=== PATIENT | female | born 1970 | race Caucasian/White ===

== ENCOUNTER 2018-09-20 21:55 | Inpatient (IN) | payer OTHER ==
[~2018-09-20] VITALS: Ht 154.9 cm; Wt 73.5 kg
[2018-09-20] MEDS ORDERED: SOD CHLORIDE 0.9% 1,000 ML IV STA (23:26)
[2018-09-20] MEDS ORDERED: ONDANSETRON 4 MG INJ IV STA (23:26)
[2018-09-20] MEDS ORDERED: PIPER-TAZO 3.375 GM IV (PMX) 100 ML IVPB STA (23:26)
[2018-09-20] MEDS ORDERED: morphine 4 MG/ML VIAL IV STA (23:26)
--- NOTE | 2018-09-20 23:32 | ERD ---
ER Documentation Chief Complaint Chief Complaint L upper breast abscess x 2 days HPI 48-year-old female with no reported past medical history who presents with complaint of left breast tenderness. States she feels he has an abscess there. Had worsening pain to the area just medial of areola of left breast. She denies any prior history of abscesses. Also reports of fever and at the time of evaluation febrile with tachycardia. She otherwise is without complaint denying any other concerning symptoms. ROS All systems reviewed and are negative except as per history of present illness. Allergies Allergies: Coded Allergies: No Known Allergy (Unverified , 09/20/18) PMhx/Soc Medical and Surgical Hx: pt denies Medical Hx, pt denies Surgical Hx History of Surgery: No Anesthesia Reaction: No Hx Respiratory Disorders: No Hx Cardiac Disorders: No Hx Psychiatric Problems: No Hx Miscellaneous Medical Probl: No Hx Alcohol Use: No Hx Substance Use: No Hx Tobacco Use: No Smoking Status: Never smoker FmHx Family History: No diabetes, No coronary disease, No other Physical Exam Vitals Vital Signs Date Temp Pulse Resp B/P (MAP) Pulse Ox O2 O2 Flow FiO2 Time Delivery Rate 09/20/18 101.7 102 18 118/56 96 22:10 (76) Physical Exam Const: No acute distress Head: Atraumatic Eyes: Normal Conjunctiva ENT: Normal External Ears, Nose and Mouth. Neck: Full range of motion. No meningismus. Resp: Clear to auscultation bilaterally Cardio: Regular rate and rhythm, no murmurs Abd: Soft, non tender, non distended. Normal bowel sounds Skin: Left breast area medial to the area Chary with tenderness to palpation, erythema, and duration Back: No midline or flank tenderness Ext: No cyanosis, or edema Neur: Awake and alert Psych: Normal Mood and Affect Procedures/MDM 48-year-old female presents with likely left breast abscess. Patient febrile and tachycardic at time of evaluation. Patient will be admitted for further evaluation and treatment per discussion with Dr. Loaiza ED attending. Plan: Admit to hospital for further care and work-up Departure Diagnosis: Primary Impression: Acute abscess Condition: Stable BERNARDO CAPELLAN PA-C Sep 20, 2018 23:32
[2018-09-21] MEDS ORDERED: ONDANSETRON 4 MG INJ IV PRN ×2 (01:30→02:30)
[2018-09-21] MEDS ORDERED: ACETAMINOPHEN 325 MG TAB PO PRN ×2 (01:30→02:30)
--- NOTE | 2018-09-21 02:22 | ERD ---
ER Documentation Chief Complaint Chief Complaint L upper breast abscess x 2 days HPI This very pleasant 48-year female with a left upper breast pains and swelling and induration. Denies any fevers or chills nausea or vomiting. Denies any other current complaints. Noted to have fever in triage however. ROS All systems reviewed and are negative except as per history of present illness. Allergies Allergies: Coded Allergies: No Known Allergy (Unverified , 09/20/18) PMhx/Soc Medical and Surgical Hx: pt denies Medical Hx, pt denies Surgical Hx History of Surgery: No Anesthesia Reaction: No Hx Respiratory Disorders: No Hx Cardiac Disorders: No Hx Psychiatric Problems: No Hx Miscellaneous Medical Probl: No Hx Alcohol Use: No Hx Substance Use: No Hx Tobacco Use: No Smoking Status: Never smoker Physical Exam Vitals Vital Signs Date Temp Pulse Resp B/P (MAP) Pulse Ox O2 O2 Flow FiO2 Time Delivery Rate 09/20/18 101.7 102 18 118/56 96 22:10 (76) Physical Exam Const: No acute distress Head: Atraumatic Eyes: Normal Conjunctiva ENT: Normal External Ears, Nose and Mouth. Neck: Full range of motion. No meningismus. Resp: Clear to auscultation bilaterally Cardio: Regular rate and rhythm, no murmurs Abd: Soft, non tender, non distended. Normal bowel sounds Skin: No petechiae or rashes Back: No midline or flank tenderness Ext: No cyanosis, or edema Neur: Awake and alert Psych: Normal Mood and Affect Result Diagram: 09/20/18 2336 09/20/18 2336 Results 24 hrs Laboratory Tests Test 09/20/18 23:36 09/20/18 23:37 White Blood Count 18.3 10^3/ul Red Blood Count 4.22 10^6/ul Hemoglobin 13.9 g/dl Hematocrit 40.5 % Mean Corpuscular Volume 96.0 fl Mean Corpuscular Hemoglobin 32.9 pg Mean Corpuscular Hemoglobin Concent 34.3 g/dl Red Cell Distribution Width 12.0 % Platelet Count 253 10^3/UL Mean Platelet Volume 9.5 fl Immature Granulocytes % 0.500 % Neutrophils % 77.8 % Lymphocytes % 11.0 % Monocytes % 10.1 % Eosinophils % 0.3 % Basophils % 0.3 % Nucleated Red Blood Cells % 0.0 /100WBC Immature Granulocytes # 0.090 10^3/ul Neutrophils # 14.3 10^3/ul Lymphocytes # 2.0 10^3/ul Monocytes # 1.8 10^3/ul Eosinophils # 0.1 10^3/ul Basophils # 0.1 10^3/ul Nucleated Red Blood Cells # 0.0 10^3/ul Urine Color STRAW Urine Clarity CLEAR Urine pH 6.0 Urine Specific [place] 1.008 Urine Ketones NEGATIVE mg/dL Urine Nitrite NEGATIVE mg/dL Urine Bilirubin NEGATIVE mg/dL Urine Urobilinogen NEGATIVE mg/dL Urine Leukocyte Esterase NEGATIVE Shaun/ul Urine Microscopic RBC 2 /HPF Urine Microscopic WBC 0 /HPF Urine Hemoglobin 1+ mg/dL Urine Glucose NEGATIVE mg/dL Urine Total Protein NEGATIVE mg/dl Sodium Level 141 mmol/L Potassium Level 3.8 mmol/L Chloride Level 105 mmol/L Carbon Dioxide Level 26 mmol/L Anion Gap 10 Blood Urea Nitrogen 10 mg/dl Creatinine 0.60 mg/dl Est Glomerular Filtrat Rate mL/min > 60 mL/min Glucose Level 106 mg/dl Calcium Level 9.2 mg/dl Total Bilirubin 0.7 mg/dl Direct Bilirubin 0.00 mg/dl Indirect Bilirubin 0.7 mg/dl Aspartate Amino Transf (AST/SGOT) 19 IU/L Alanine Aminotransferase (ALT/SGPT) 18 IU/L Alkaline Phosphatase 86 IU/L Total Protein 7.6 g/dl Albumin 4.2 g/dl Globulin 3.40 g/dl Albumin/Globulin Ratio 1.23 Lipase 64 U/L POC Beta HCG, Qualitative NEGATIVE Current Medications Medications Dose Sig/Ania Start Time Status Last (Trade) Ordered Route PRN Stop Time Admin Dose Reason Admin Sodium 1,000 ml @ Q1H STAT 09/20/18 DC 09/20/18 Chloride 1,000 mls/hr IV 23:26 23:44 09/21/18 00:25 Morphine 4 mg ONCE STAT 09/20/18 DC 09/20/18 Sulfate IV 23:26 23:44 (morphine) 09/20/18 23:31 Ondansetron 4 mg ONCE STAT 09/20/18 DC 09/20/18 HCl (Zofran IV 23:26 23:44 Inj) 09/20/18 23:31 Piperacillin 100 ml @ ONCE STAT 09/20/18 DC 09/21/18 Sod/ 200 mls/hr IVPB 23:26 00:09 Tazobactam 7/10/19 23:55 Sod Ondansetron 4 mg BRIDGE ORDER 09/21/18 HCl (Zofran PRN IV 01:30 Inj) NAUSEA/VOMITI 09/22/18 01:29 NG 650 mg ER BRIDGE 09/21/18 Acetaminophen PRN PO 01:30 (Tylenol .MILD PAIN 09/22/18 01:29 Tab) 1-3 OR TEMP IV Flush 3 ml PER 09/21/18 (NS 3 ml) PROTOCOL IV 02:30 Ondansetron 4 mg Q6H PRN 09/21/18 HCl (Zofran IV 02:30 Inj) NAUSEA/VOMITI NG 650 mg Q6H PRN 09/21/18 Acetaminophen PO .PAIN 1-3 02:30 (Tylenol OR TEMP Tab) 1 tab Q6H PRN 09/21/18 Acetaminophen PO .MOD PAIN 02:30 / 4-6 Hydrocodone Bitart ([place] (5/325)) Morphine 2 mg Q4H PRN 09/21/18 Sulfate IV .SEVERE 02:30 (morphine) PAIN 7-10 Docusate 100 mg Q12H PRN 09/21/18 Sodium PO 02:30 (Colace) .CONSTIPATION Bisacodyl 5 mg DAILY PRN 09/21/18 (Dulcolax) PO 02:30 .CONSTIPATION Vancomycin VANCOMYCIN PER 09/21/18 HCl (Vanco PER PHARMACY PROTOCOL XX 02:30 Iv Per Pharmacy) Piperacillin 100 ml @ Q6 IVPB 09/21/18 Sod/ 200 mls/hr 06:00 Tazobactam Sod Procedures/MDM Medical decision make: 48-year-old female comes in with cellulitis versus abscess. Ultrasound shows no abscess but early abscess cannot be completely excluded. Start antibiotics but admitted to hospitalist. Departure Diagnosis: Primary Impression: Acute abscess Condition: Stable KELL MILLER Sep 21, 2018 02:22
[2018-09-21] MEDS ORDERED: DOCUSATE SODIUM 100 MG CAP PO PRN (02:30)
[2018-09-21] MEDS ORDERED: HYDROCODONE/APAP (5/325) TAB PO PRN (02:30)
[2018-09-21] MEDS ORDERED: BISACODYL (EC) 5 MG TAB PO PRN (02:30)
[2018-09-21] MEDS ORDERED: morphine 2 MG INJ IV PRN (02:30)
[2018-09-21] MEDS ORDERED: VANCOMYCIN IV PER PHARMACY XX SCH (02:30)
[2018-09-21] MEDS ORDERED: NACL 0.9% 3 ML SYG IV SCH (02:30)
[2018-09-21 02:54] VITALS: Ht 154.9 cm; Wt 73.5 kg
[2018-09-21] MEDS ORDERED: VANCOMYCIN HCL 1.5 GM in SOD CHLORIDE 0.9% 250 ML IVPB ONE (03:30)
[2018-09-21 03:59] VITALS: BP 114/72; PULSE 89; RESP 20
--- NOTE | 2018-09-21 04:45 | HP ---
Date/Time of Note Date/Time of Note DATE: 09/21/18 TIME: 04:41 Assessment/Plan VTE Prophylaxis SCD applied (from Nsg): Yes Pharmacological prophylaxis: NA/contraindicated Pharm contraindication: low risk/ambulating Lines/Catheters IV Catheter Type (from Nrsg): Peripheral IV Assessment/Plan Hospital Course This is a 48-year-old female being admitted to the [facility] floor for: #1 sepsis: Secondary to left breast cellulitis. Broad-spectrum antibiotics of vancomycin and Zosyn. Will check her lactic acid level. Cultures pending #2 left breast cellulitis: Ultrasound of the breast does not show any signs of abscess. She does have area of induration as mentioned in the physical exam. At the current time we will treat with broad-spectrum antibiotics of vancomycin and Zosyn. Pain management. Patient does report that she had a benign mammogram 3 months ago. #3 obesity: We will check hemoglobin A 1C, lipid panel, TSH #4 DVT GI prophylaxis: SCDs, no GI prophylaxis indicated Further treatment strategy will be implemented as per the clinical course. Result Diagram: 09/20/18 2336 09/20/18 2336 Results 24hrs Laboratory Tests Test 09/20/18 23:36 09/20/18 23:37 White Blood Count 18.3 H Red Blood Count 4.22 Hemoglobin 13.9 Hematocrit 40.5 Mean Corpuscular Volume 96.0 Mean Corpuscular Hemoglobin 32.9 Mean Corpuscular Hemoglobin Concent 34.3 Red Cell Distribution Width 12.0 Platelet Count 253 Mean Platelet Volume 9.5 Immature Granulocytes % 0.500 H Neutrophils % 77.8 H Lymphocytes % 11.0 L Monocytes % 10.1 Eosinophils % 0.3 Basophils % 0.3 Nucleated Red Blood Cells % 0.0 Immature Granulocytes # 0.090 H Neutrophils # 14.3 H Lymphocytes # 2.0 Monocytes # 1.8 H Eosinophils # 0.1 Basophils # 0.1 Nucleated Red Blood Cells # 0.0 Urine Color STRAW Urine Clarity CLEAR Urine pH 6.0 Urine Specific [place] 1.008 Urine Ketones NEGATIVE Urine Nitrite NEGATIVE Urine Bilirubin NEGATIVE Urine Urobilinogen NEGATIVE Urine Leukocyte Esterase NEGATIVE Urine Microscopic RBC 2 Urine Microscopic WBC 0 Urine Hemoglobin 1+ H Urine Glucose NEGATIVE Urine Total Protein NEGATIVE Sodium Level 141 Potassium Level 3.8 Chloride Level 105 Carbon Dioxide Level 26 Anion Gap 10 Blood Urea Nitrogen 10 Creatinine 0.60 Est Glomerular Filtrat Rate mL/min > 60 Glucose Level 106 Calcium Level 9.2 Total Bilirubin 0.7 Direct Bilirubin 0.00 Indirect Bilirubin 0.7 Aspartate Amino Transf (AST/SGOT) 19 Alanine Aminotransferase (ALT/SGPT) 18 Alkaline Phosphatase 86 Total Protein 7.6 Albumin 4.2 Globulin 3.40 H Albumin/Globulin Ratio 1.23 Lipase 64 POC Beta HCG, Qualitative NEGATIVE HPI/ROS Admit Date/Time Admit Date/Time Sep 21, 2018 at 01:13 Hx of Present Illness Chief complaint: Left breast pain, swelling This is a 48-year-old male with no significant past medical history who presents to the emergency department with complaints of left breast swelling x2 days. Patient reports that on Tuesday she started experiencing left breast swelling. She also noticed the area that was hard. She states that it got worse and came into the emergency department. She also reports that she has had fevers and chills and body aches. She denies any nausea vomiting or diarrhea. Denies any history of trauma to the breast. Denies any discharge. She does report that she had a mammogram approximately 3 months ago which was benign. currently not breast-feeding. Allergies: NKDA Medications: None ROS Const: As per HPI Eyes : No pain discharge or redness or change in visual acuity ENT: No pain, sore throat, congestion, congestion, dysphagia or discharge Respiratory: No shortness of breath, cough, sputum, wheezing, or pleuritic pain Cardiovascular: No chest pain, palpitation, PND, or edema GI : no change in appetite, abdominal pain, nausea, vomiting, diarrhea, constipation, or change in the color his stool Genitourinary: No dysuria, hematuria, flank pain , discharge or CVA tenderness Musculoskeletal: No joint pain, back pain, neck pain, restricted range of motion in neck or joints Skin: As per HPI Neuro: No headache, dizziness, syncope, seizure, focal weakness Endocrine: No polyuria, polydipsia, temperature intolerance Psych: No hallucination, depression, anxiety or suicidal ideation PMH/Family/Social Past Medical History Medical History: no pertinent history Medications Current Medications Ondansetron HCl (Zofran Inj) 4 mg BRIDGE ORDER PRN IV NAUSEA/VOMITING; Start 09/21/18 at 01:30; Stop 09/22/18 at 01:29 Acetaminophen (Tylenol Tab) 650 mg ER BRIDGE PRN PO .MILD PAIN 1-3 OR TEMP; Start 09/21/18 at 01:30; Stop 09/22/18 at 01:29 IV Flush (NS 3 ml) 3 ml PER PROTOCOL IV ; Start 09/21/18 at 02:30 Ondansetron HCl (Zofran Inj) 4 mg Q6H PRN IV NAUSEA/VOMITING; Start 09/21/18 at 02:30 Acetaminophen (Tylenol Tab) 650 mg Q6H PRN PO .PAIN 1-3 OR TEMP Last administered on 09/21/18at 03:53; Admin Dose 650 MG; Start 09/21/18 at 02:30 Acetaminophen/ Hydrocodone Bitart ([place] (5/325)) 1 tab Q6H PRN PO .MOD PAIN 4- 6; Start 09/21/18 at 02:30 Morphine Sulfate (morphine) 2 mg Q4H PRN IV .SEVERE PAIN 7-10; Start 09/21/18 at 02:30 Docusate Sodium (Colace) 100 mg Q12H PRN PO .CONSTIPATION; Start 09/21/18 at 02:30 Bisacodyl (Dulcolax) 5 mg DAILY PRN PO .CONSTIPATION; Start 09/21/18 at 02:30 Vancomycin HCl (Vanco Iv Per Pharmacy) VANCOMYCIN PER PHARMACY PER PROTOCOL XX ; Start 09/21/18 at 02:30 Piperacillin Sod/ Tazobactam Sod 100 ml @ 200 mls/hr Q6 IVPB ; Start 09/21/18 at 06:00 Vancomycin HCl 1.5 gm/Sodium Chloride 250 ml @ 83.333 mls/ hr ONCE ONCE IVPB Last administered on 09/21/18at 02:34; Admin Dose 83.333 MLS/HR; Start 09/21/18 at 03:30; Stop 09/21/18 at 06:29 Vancomycin HCl 250 ml @ 125 mls/hr Q12H IVPB ; Start 09/21/18 at 15:30 Miscellaneous Information (*Rx Drug Level Order Reminder*) VANCOMYCIN TROUGH LEVEL 1430 ONCE XX ; Start 09/22/18 at 14:30; Stop 09/22/18 at 14:31 Coded Allergies: No Known Allergy (Unverified , 09/20/18) Past Surgical History Past Surgical Hx: no surgical history Family History Significant Family History: no pertinent family hx Social History Smoking Status: Never smoker Drug Use: none Exam/Review of Systems Vital Signs Vitals Vital Signs Date Temp Pulse Resp B/P (MAP) Pulse Ox O2 O2 Flow FiO2 Time Delivery Rate 09/21/18 100.0 89 20 114/72 98 Room Air 03:59 (86) Exam Exam Nessa the patient's RN was present during the physical exam as a x ray consultant. General: She currently lying in bed in no acute distress HEENT: Atraumatic, normocephalic. The pupils are equal, round and reactive. Extraocular motor are intact Neck: Supple with full range of motion. No rigidity or meningismus Chest: Nontender Lungs: Clear to auscultation bilaterally no crackles rales or wheezing Heart: Normal S1-S2, Regular rhythm and rate. No murmur, S3, or S4 Abdomen: Soft , nontender, nondistended , bowel sounds are present. No guarding no rebound tenderness , No masses or organomegaly. No costovertebral temporal angle mass Extremities: Normal to inspection, no edema no cyanosis Breast: Left breast warmth noted, no erythema, tenderness to palpation at the medial aspect of the breast from 5 o clock to 11 oclock.. Right breast nontender to palpation, no erythema or redness noted Lymph nodes: I do not appreciate any left axillary lymphadenopathy on my examination. Neurologic: Normal mental status, speech normal, cranial nerves II through XII are intact, motor and sensory are intact, no focal weakness Additional Comments PROCEDURE: US left Breast. CLINICAL INDICATION: Left breast pain and swelling TECHNIQUE: Multiple sonographic images of the region of concern in the left breast were obtained utilizing a high-resolution linear array transducer with grayscale and color-flow and Doppler imaging 1 appropriate. The images were reviewed on a high-resolution PACS workstation. COMPARISON: No prior studies are available for comparison. FINDINGS: Four-quadrant imaging reveals bland breast parenchyma with no visible mass or abnormal fluid collection. There is no unusual posterior acoustic shadowing. No abnormal blood flow is demonstrated. IMPRESSION: 1. No sonographic evidence of abscess in the left breast at this time. RPTAT:AAJJ Tavon Gutierrez, Physician Date Time Electronically viewed and signed by Tavon Gutierrez Physician on 09/21/2018 01:14 GW/ CC: KELL MILLER [id number] MACRINA GASPAR Sep 21, 2018 04:45
[2018-09-21] MEDS: KETOROLAC 15 MG INJ IV SCH ×3 (05:28→16:57)
[2018-09-21] MEDS: PIPER-TAZO 3.375 GM IV (PMX) 100 ML IVPB SCH ×2 (05:28→12:20)
[2018-09-21 07:51] VITALS: BP 93/56; PULSE 78; RESP 17
[2018-09-21 14:00] VITALS: BP 84/52; PULSE 70; RESP 16
--- NOTE | 2018-09-21 14:03 | PN ---
Date/Time of Note Date/Time of Note DATE: 09/21/18 TIME: 14:02 Assessment/Plan VTE Prophylaxis Risk score (from Ns)>0 risk: 2 SCD applied (from Ns): Yes Pharmacological prophylaxis: NA/contraindicated Pharm contraindication: low risk/ambulating Lines/C[facility]ters [facility] Urinary Cath still in place: No Assessment/Plan Hospital Course SUBJECTIVE: Continues to have low grade fevers. Continues to have pain in the left breast. OBJECTIVE: Physical Exam General: Adequately build 48 year-old female lying in bed in no apparent distress. HEENT: Normocephalic, atraumatic. Eyes: Anicteric sclerae, conjunctivae clear. ENT: Nasal septum midline, oral mucosa moist. Neck supple, no JVD noticed. Respiratory: Bilaterally clear breath sounds. No use of accessory muscles of respiration. No adventitious breath sounds. Cardiovascular: S1, S2 heard. No murmurs or gallops. Abdomen: Soft, nontender, and nondistended. Bowel sounds positive in all 4 quadrants. Genitourinary: Deferred. Extremities: No cyanosis, no clubbing, no edema. Peripheral pulses palpable. Neurologic: Cranial nerves II through XII grossly intact. The patient is awake, alert, and oriented. Breast: Left breast inverted nipple. Tenderness in the nipple and periareolar area. No erythema. Labs & Vitals per chart ASSESSMENT & PLAN 48-year-old female with no significant past medical history who came to the emergency department because of swelling in the left breast and pain with underlying leukocytosis, febrile illness, and tachycardia, who was admitted to inpatient setting for further treatment and evaluation. 1. Sepsis with leukocytosis, febrile illness, and tachycardia, present on admission. Pending collazo cultures. Continue empiric antimicrobials. Monitor for any septic shock. 2. Left sided mastitis. Etiology unclear. Ultrasound negative for any abscess. 3. Obesity. BMI 30 kg/m. Advised lifestyle changes. 4. Fluids, electrolytes, and nutrition. Regular diet. 5. DVT prophylaxis. Bilateral SCDs. Ambulation. 6. Plan. Continue empiric antimicrobials. Await final cultures. Await clinical improvement before discharge the patient home. The patient was in collaboration with Dr. Espinoza. Result Diagram: 09/21/18 0556 09/21/18 0556 Results 24hrs Laboratory Tests Test 09/20/18 23:36 09/20/18 23:37 09/21/18 05:56 White Blood Count 18.3 H 17.7 H Red Blood Count 4.22 3.73 L Hemoglobin 13.9 12.6 Hematocrit 40.5 35.9 L Mean Corpuscular Volume 96.0 96.2 Mean Corpuscular Hemoglobin 32.9 33.8 H Mean Corpuscular Hemoglobin Concent 34.3 35.1 Red Cell Distribution Width 12.0 12.0 Platelet Count 253 222 Mean Platelet Volume 9.5 9.7 Immature Granulocytes % 0.500 H 0.500 H Neutrophils % 77.8 H 76.7 Lymphocytes % 11.0 L 10.5 L Monocytes % 10.1 11.6 H Eosinophils % 0.3 0.4 Basophils % 0.3 0.3 Nucleated Red Blood Cells % 0.0 0.0 Immature Granulocytes # 0.090 H 0.080 H Neutrophils # 14.3 H 13.6 H Lymphocytes # 2.0 1.9 Monocytes # 1.8 H 2.1 H Eosinophils # 0.1 0.1 Basophils # 0.1 0.1 Nucleated Red Blood Cells # 0.0 0.0 Urine Color STRAW Urine Clarity CLEAR Urine pH 6.0 Urine Specific [place] 1.008 Urine Ketones NEGATIVE Urine Nitrite NEGATIVE Urine Bilirubin NEGATIVE Urine Urobilinogen NEGATIVE Urine Leukocyte Esterase NEGATIVE Urine Microscopic RBC 2 Urine Microscopic WBC 0 Urine Hemoglobin 1+ H Urine Glucose NEGATIVE Urine Total Protein NEGATIVE Sodium Level 141 142 Potassium Level 3.8 3.6 Chloride Level 105 109 Carbon Dioxide Level 26 25 Anion Gap 10 8 Blood Urea Nitrogen 10 10 Creatinine 0.60 0.58 Est Glomerular Filtrat Rate mL/min > 60 > 60 Glucose Level 106 102 Calcium Level 9.2 8.3 L Total Bilirubin 0.7 0.8 Direct Bilirubin 0.00 0.00 Indirect Bilirubin 0.7 0.8 Aspartate Amino Transf (AST/SGOT) 19 16 Alanine Aminotransferase (ALT/SGPT) 18 19 Alkaline Phosphatase 86 60 Total Protein 7.6 6.1 # Albumin 4.2 3.1 #L Globulin 3.40 H 3.00 Albumin/Globulin Ratio 1.23 1.03 Lipase 64 POC Beta HCG, Qualitative NEGATIVE Erythrocyte Sedimentation Rate 17.0 Hemoglobin A1c 4.8 Lactic Acid Level 0.9 Magnesium Level 1.8 C-Reactive Protein 6.6 H Triglycerides Level 55 Cholesterol Level 142 LDL Cholesterol, Calculated 95 HDL Cholesterol 36 Cholesterol/HDL Ratio 3.9 Thyroid Stimulating Hormone (TSH) 2.120 Exam/Review of Systems Exam Vitals Vital Signs Date Temp Pulse Resp B/P (MAP) Pulse Ox O2 O2 Flow FiO2 Time Delivery Rate 09/21/18 98.4 78 17 93/56 (68) 98 07:51 09/21/18 Room Air 03:59 Intake and Output 09/20/18 09/20/18 09/21/18 1515:00 23:00 07:00 IntakeIntake Total 350 ml BalanceBalance 350 ml Results Results 24hrs Laboratory Tests Test 09/20/18 23:36 09/20/18 23:37 09/21/18 05:56 White Blood Count 18.3 H 17.7 H Red Blood Count 4.22 3.73 L Hemoglobin 13.9 12.6 Hematocrit 40.5 35.9 L Mean Corpuscular Volume 96.0 96.2 Mean Corpuscular Hemoglobin 32.9 33.8 H Mean Corpuscular Hemoglobin Concent 34.3 35.1 Red Cell Distribution Width 12.0 12.0 Platelet Count 253 222 Mean Platelet Volume 9.5 9.7 Immature Granulocytes % 0.500 H 0.500 H Neutrophils % 77.8 H 76.7 Lymphocytes % 11.0 L 10.5 L Monocytes % 10.1 11.6 H Eosinophils % 0.3 0.4 Basophils % 0.3 0.3 Nucleated Red Blood Cells % 0.0 0.0 Immature Granulocytes # 0.090 H 0.080 H Neutrophils # 14.3 H 13.6 H Lymphocytes # 2.0 1.9 Monocytes # 1.8 H 2.1 H Eosinophils # 0.1 0.1 Basophils # 0.1 0.1 Nucleated Red Blood Cells # 0.0 0.0 Urine Color STRAW Urine Clarity CLEAR Urine pH 6.0 Urine Specific [place] 1.008 Urine Ketones NEGATIVE Urine Nitrite NEGATIVE Urine Bilirubin NEGATIVE Urine Urobilinogen NEGATIVE Urine Leukocyte Esterase NEGATIVE Urine Microscopic RBC 2 Urine Microscopic WBC 0 Urine Hemoglobin 1+ H Urine Glucose NEGATIVE Urine Total Protein NEGATIVE Sodium Level 141 142 Potassium Level 3.8 3.6 Chloride Level 105 109 Carbon Dioxide Level 26 25 Anion Gap 10 8 Blood Urea Nitrogen 10 10 Creatinine 0.60 0.58 Est Glomerular Filtrat Rate mL/min > 60 > 60 Glucose Level 106 102 Calcium Level 9.2 8.3 L Total Bilirubin 0.7 0.8 Direct Bilirubin 0.00 0.00 Indirect Bilirubin 0.7 0.8 Aspartate Amino Transf (AST/SGOT) 19 16 Alanine Aminotransferase (ALT/SGPT) 18 19 Alkaline Phosphatase 86 60 Total Protein 7.6 6.1 # Albumin 4.2 3.1 #L Globulin 3.40 H 3.00 Albumin/Globulin Ratio 1.23 1.03 Lipase 64 POC Beta HCG, Qualitative NEGATIVE Erythrocyte Sedimentation Rate 17.0 Hemoglobin A1c 4.8 Lactic Acid Level 0.9 Magnesium Level 1.8 C-Reactive Protein 6.6 H Triglycerides Level 55 Cholesterol Level 142 LDL Cholesterol, Calculated 95 HDL Cholesterol 36 Cholesterol/HDL Ratio 3.9 Thyroid Stimulating Hormone (TSH) 2.120 Medications Medication Current Medications IV Flush (NS 3 ml) 3 ml PER PROTOCOL IV ; Start 09/21/18 at 02:30 Ondansetron HCl (Zofran Inj) 4 mg Q6H PRN IV NAUSEA/VOMITING; Start 09/21/18 at 02:30 Acetaminophen (Tylenol Tab) 650 mg Q6H PRN PO .PAIN 1-3 OR TEMP Last administered on 09/21/18at 03:53; Admin Dose 650 MG; Start 09/21/18 at 02:30 Acetaminophen/ Hydrocodone Bitart ([place] (5/325)) 1 tab Q6H PRN PO .MOD PAIN 4- 6; Start 09/21/18 at 02:30 Morphine Sulfate (morphine) 2 mg Q4H PRN IV .SEVERE PAIN 7-10; Start 09/21/18 at 02:30 Docusate Sodium (Colace) 100 mg Q12H PRN PO .CONSTIPATION; Start 09/21/18 at 02:30 Bisacodyl (Dulcolax) 5 mg DAILY PRN PO .CONSTIPATION; Start 09/21/18 at 02:30 Vancomycin HCl (Vanco Iv Per Pharmacy) VANCOMYCIN PER PHARMACY PER PROTOCOL XX ; Start 09/21/18 at 02:30 Piperacillin Sod/ Tazobactam Sod 100 ml @ 200 mls/hr Q6 IVPB Last administered on 09/21/18at 12:20; Admin Dose 200 MLS/HR; Start 09/21/18 at 06:00 Vancomycin HCl 250 ml @ 125 mls/hr Q12H IVPB ; Start 09/21/18 at 15:30 Miscellaneous Information (*Rx Drug Level Order Reminder*) VANCOMYCIN TROUGH LEVEL 1430 ONCE XX ; Start 09/22/18 at 14:30; Stop 09/22/18 at 14:31 Ketorolac Tromethamine (Toradol) 15 mg Q6H IV Last administered on 09/21/18at 12:20; Admin Dose 15 MG; Start 09/21/18 at 05:00; Stop 09/22/18 at 04:59 MÓNICA BROOKE NP Sep 21, 2018 14:03
[2018-09-21 15:26] VITALS: BP 97/56; PULSE 71; RESP 16
[2018-09-21] MEDS: VANCOMYCIN 1 GM 250 ML IVPB SCH (16:57)
[2018-09-21 20:00] VITALS: BP 95/53; PULSE 77; RESP 17
[2018-09-21] MEDS: AMPICILLIN/SULB 3 GM/NS (PMX) 100 ML IVPB SCH (20:00)
[2018-09-22] MEDS: AMPICILLIN/SULB 3 GM/NS (PMX) 100 ML IVPB SCH ×2 (00:21→06:37)
[2018-09-22] MEDS: KETOROLAC 15 MG INJ IV SCH (00:22)
[2018-09-22 02:00] VITALS: BP 98/56; PULSE 74; RESP 17
[2018-09-22] MEDS: VANCOMYCIN 1 GM 250 ML IVPB SCH (04:15)
--- NOTE | 2018-09-22 07:49 | CONS ---
Assessment/Plan Assessment/Plan Hospital Course (Demo Recall) 1) L breast mastitis/cellulitis pt has quickly responded to antibiotics and feels fine less pain to L breast her fever and WBC have also improved no fluid collection appreciated on breast u/s d/c vanco/unasyn and start augmentin/doxy if pt tolerates these then she is ok for d/c from ID perspective no obvious cause for this elicited in her history Consultation Date/Type/Reason Admit Date/Time Sep 21, 2018 at 01:13 Date of Consultation: Sep 22, 2018 Type of Consult ID Date/Time of Note DATE: 09/22/18 TIME: 07:43 Hx of Present Illness healthy 48yo HF admitted with 6 days of L breast swelling and one day of F, C and pain to L breast she appreciated some mild redness to the breast upon admission no N, V, D no cough, sore throat, SOB no dysuria, rashes, joint pains she is not sexually active and does not breast feed currently she does not recall any injury to her breast and does not recall any chafing to breast from her clothes Past Medical History Medical History: no pertinent history Medications Current Medications IV Flush (NS 3 ml) 3 ml PER PROTOCOL IV ; Start 09/21/18 at 02:30 Ondansetron HCl (Zofran Inj) 4 mg Q6H PRN IV NAUSEA/VOMITING; Start 09/21/18 at 02:30 Acetaminophen (Tylenol Tab) 650 mg Q6H PRN PO .PAIN 1-3 OR TEMP Last administered on 09/21/18at 03:53; Admin Dose 650 MG; Start 09/21/18 at 02:30 Acetaminophen/ Hydrocodone Bitart ([place] (5/325)) 1 tab Q6H PRN PO .MOD PAIN 4- 6; Start 09/21/18 at 02:30 Morphine Sulfate (morphine) 2 mg Q4H PRN IV .SEVERE PAIN 7-10; Start 09/21/18 at 02:30 Docusate Sodium (Colace) 100 mg Q12H PRN PO .CONSTIPATION; Start 09/21/18 at 02:30 Bisacodyl (Dulcolax) 5 mg DAILY PRN PO .CONSTIPATION; Start 09/21/18 at 02:30 Vancomycin HCl (Vanco Iv Per Pharmacy) VANCOMYCIN PER PHARMACY PER PROTOCOL XX ; Start 09/21/18 at 02:30 Vancomycin HCl 250 ml @ 125 mls/hr Q12H IVPB Last administered on 09/22/18at 04:15; Admin Dose 125 MLS/HR; Start 09/21/18 at 15:30 Miscellaneous Information (*Rx Drug Level Order Reminder*) VANCOMYCIN TROUGH LEVEL 1430 ONCE XX ; Start 09/22/18 at 14:30; Stop 09/22/18 at 14:31 Ampicillin Sodium/ Sulbactam Sodium 100 ml @ 100 mls/hr Q6 IVPB Last administered on 09/22/18at 06:37; Admin Dose 100 MLS/HR; Start 09/21/18 at 18:00 Allergies: Coded Allergies: No Known Allergy (Unverified , 09/20/18) Past Surgical History Past Surgical Hx: no surgical history Social History Smoking Status: Never smoker Drug Use: none Exam/Review of Systems Exam Vitals Vital Signs Date Temp Pulse Resp B/P (MAP) Pulse Ox O2 O2 Flow FiO2 Time Delivery Rate 09/22/18 98.2 74 17 98/56 (70) 98 Room Air 02:00 Intake and Output 09/21/18 09/21/18 09/22/18 1515:00 23:00 07:00 IntakeIntake Total 100 ml 1050 ml BalanceBalance 100 ml 1050 ml Constitutional: alert, oriented Eyes: nl sclera Respiratory: clear to auscultation Cardiovascular: regular rate and rhythm Gastrointestinal: soft, non-tender Extremities: other (no edema or swelling to calves) Skin: other (L breast is slightly larger than R breast, no redness but there is some increase in heat to L breast) Results Result Diagram: 09/22/18 0608 09/22/18 0608 Results 24hrs Laboratory Tests Test 09/22/18 06:04 09/22/18 06:08 Phosphorus Level 3.6 Magnesium Level 2.0 White Blood Count 13.5 #H Red Blood Count 3.90 L Hemoglobin 12.8 Hematocrit 38.0 Mean Corpuscular Volume 97.4 Mean Corpuscular Hemoglobin 32.8 Mean Corpuscular Hemoglobin Concent 33.7 Red Cell Distribution Width 12.2 Platelet Count 232 Mean Platelet Volume 9.5 Immature Granulocytes % 0.500 H Neutrophils % 68.5 Lymphocytes % 16.8 Monocytes % 12.3 H Eosinophils % 1.6 Basophils % 0.3 Nucleated Red Blood Cells % 0.0 Immature Granulocytes # 0.070 H Neutrophils # 9.2 H Lymphocytes # 2.3 Monocytes # 1.7 H Eosinophils # 0.2 Basophils # 0.0 Nucleated Red Blood Cells # 0.0 Erythrocyte Sedimentation Rate 30.0 H Sodium Level 142 Potassium Level 4.3 Chloride Level 110 Carbon Dioxide Level 27 Anion Gap 5 Blood Urea Nitrogen 12 Creatinine 0.56 Est Glomerular Filtrat Rate mL/min > 60 Glucose Level 98 Calcium Level 8.8 Total Bilirubin 0.5 Direct Bilirubin 0.00 Indirect Bilirubin 0.5 Aspartate Amino Transf (AST/SGOT) 22 Alanine Aminotransferase (ALT/SGPT) 20 Alkaline Phosphatase 63 Total Protein 6.3 Albumin 3.1 L Globulin 3.20 Albumin/Globulin Ratio 0.96 Medications Medication Current Medications IV Flush (NS 3 ml) 3 ml PER PROTOCOL IV ; Start 09/21/18 at 02:30 Ondansetron HCl (Zofran Inj) 4 mg Q6H PRN IV NAUSEA/VOMITING; Start 09/21/18 at 02:30 Acetaminophen (Tylenol Tab) 650 mg Q6H PRN PO .PAIN 1-3 OR TEMP Last administered on 09/21/18at 03:53; Admin Dose 650 MG; Start 09/21/18 at 02:30 Acetaminophen/ Hydrocodone Bitart ([place] (5/325)) 1 tab Q6H PRN PO .MOD PAIN 4-6; Start 09/21/18 at 02:30 Morphine Sulfate (morphine) 2 mg Q4H PRN IV .SEVERE PAIN 7-10; Start 09/21/18 at 02:30 Docusate Sodium (Colace) 100 mg Q12H PRN PO .CONSTIPATION; Start 09/21/18 at 02:30 Bisacodyl (Dulcolax) 5 mg DAILY PRN PO .CONSTIPATION; Start 09/21/18 at 02:30 Vancomycin HCl (Vanco Iv Per Pharmacy) VANCOMYCIN PER PHARMACY PER PROTOCOL XX ; Start 09/21/18 at 02:30 Vancomycin HCl 250 ml @ 125 mls/hr Q12H IVPB Last administered on 09/22/18at 04:15; Admin Dose 125 MLS/HR; Start 09/21/18 at 15:30 Miscellaneous Information (*Rx Drug Level Order Reminder*) VANCOMYCIN TROUGH LEVEL 1430 ONCE XX ; Start 09/22/18 at 14:30; Stop 09/22/18 at 14:31 Ampicillin Sodium/ Sulbactam Sodium 100 ml @ 100 mls/hr Q6 IVPB Last administered on 09/22/18at 06:37; Admin Dose 100 MLS/HR; Start 09/21/18 at 18:00 SHRUTHI CARO MD Sep 22, 2018 07:49
[2018-09-22 07:53] VITALS: BP 103/69; PULSE 65; RESP 18
[2018-09-22] MEDS ORDERED: DOXYCYCLINE 100 MG TAB PO SCH (09:00)
[2018-09-22] MEDS ORDERED: AMOXICILLIN/CLAV 875 MG TAB PO SCH (09:00)
[2018-09-22] MEDS ORDERED: AMOX1TAB10 PO (12:50)
[2018-09-22] MEDS ORDERED: DOXY100T2 PO (12:50)
[2018-09-22] MEDS ORDERED: Work Note (12:52)
--- NOTE | 2018-09-22 12:54 | PDOCDIS ---
Discharge Instructions CONDITION [id number] Patient Condition: [id number] Stable HOME CARE INSTRUCTIONS: [id number] Diet Instructions: [id number] Regular FOLLOW UP/APPOINTMENTS Follow-up Plan Follow-up with your primary care physician 1 week. OTHER ORDERS: Other Orders: 1. Complete the course of antibiotics. 2. Take vgej-hom-decqbdn pain medications as needed. 3. Follow-up with your primary care physician in 1 week. 4. Resume activities as tolerated. 5. Please go to the nearest emergency room if you have significant pain in the left breast, persistent fevers, or any other unusual signs/symptoms. MÓNICA BROOKE NP Sep 22, 2018 12:54
[2018-09-22 14:00] VITALS: BP 132/83; PULSE 82; RESP 18
--- NOTE | 2018-09-22 14:22 | DS ---
Date/Time of Note Date/Time of Note DATE: 09/22/18 TIME: 14:21 Discharge Summary Admission/Discharge Info Admit Date/Time Sep 21, 2018 at 01:13 Discharge Date/Time Discharge Diagnosis 1. S/P sepsis with leukocytosis, febrile illness, and tachycardia, present on admission. 2. Left mastitis. 3. Obesity. BMI 30 kg/m. Patient Condition: Stable Consults Saúl Butt MD, Infectious Diseases. Procedures US Left Breast IMPRESSION: 1. No sonographic evidence of abscess in the left breast at this time. Hx of Present Illness This is a 48-year-old female with no significant past medical history came to the emergency department because of swelling in the left breast and pain with underlying leukocytosis, febrile illness, and tachycardia, was admitted to inpatient setting for further treatment and evaluation. Hospital Course Patient had evidence of sepsis with leukocytosis, febrile illness, and tachycardia secondary to underlying left-sided mastitis. Pancultures were sent on this patient which are negative to date. The patient underwent a left breast ultrasound that was negative for any abscess. Initially, the patient was maintained on IV vancomycin and Unasyn. This was switched to oral Augmentin and doxycycline after evaluation by infectious diseases. The patient responded well to the antimicrobial therapy. Therefore, the patient will be discharged home on oral amoxicillin plus doxycycline to complete a course of 10 days. The patient is a healthy female with no significant other comorbidities. The patient was noted to have a BMI of 30 kg/m indicating obesity. The patient's hemoglobin A1c was within normal limits. The patient's fasting lipid panel was satisfacto ry. The patient had a stable hospital course. That the patient was cleared by consultants to be discharged home. Discharge Instructions 1. Complete the course of antibiotics. 2. Take qbwd-wlu-rtnoycy pain medications as needed. 3. Follow-up with your primary care physician in 1 week. 4. Resume activities as tolerated. 5. Please go to the nearest emergency room if you have significant pain in the left breast, persistent fevers, or any other unusual signs/symptoms. The patient verbalized understanding of her discharge instructions. At this time I would like to thank for seeing the patient and providing clinical recommendations. The patient was in collaboration with Dr. Espinoza. [employer] [Work Note] No Conflict Check This is to certify that this patient was admitted to [facility] from 09/20/2018 to 09/22/2018. She may return back to work on 09/25/2018 with no restrictions. Prov:MÓNICA BROOKE MGMT ANALYST 09/22/18 Doxycycline* (Vibramycin*) 100 Mg Tab, 100 MG PO BID, #20 TAB Prov:MÓNICA BROOKE MGMT ANALYST 09/22/18 Amoxicillin/Potassium Clav (Amox-Clav 875-125 mg Tablet) 875-125 mg Tab, 875 MG PO BID, #20 TAB Prov:MÓNICA BROOKE MGMT ANALYST 09/22/18 Follow-up Plan Follow-up with your primary care physician 1 week. Primary Care Provider [facility] Time spent on discharge: > 30 minutes Pending Labs Laboratory Tests Test 09/22/18 06:04 09/22/18 06:08 Phosphorus Level 3.6 mg/dl (2.5-4.9) Magnesium Level 2.0 mg/dl (1.7-2.5) White Blood Count 13.5 10^3/ul (4.8-10.8) Red Blood Count 3.90 10^6/ul (4.20-5.40) Hemoglobin 12.8 g/dl (12.0-16.0) Hematocrit 38.0 % (37.0-47.0) Mean Corpuscular Volume 97.4 fl (82.0-101.0) Mean Corpuscular Hemoglobin 32.8 pg (29.0-33.0) Mean Corpuscular 33.7 g/dl (32.0-37.0) Hemoglobin Concent Red Cell Distribution Width 12.2 % (11.5-14.5) Platelet Count 232 10^3/UL (140-415) Mean Platelet Volume 9.5 fl (7.4-10.4) Immature Granulocytes % 0.500 % (0.001-0.429) Neutrophils % 68.5 % (39.0-77.0) Lymphocytes % 16.8 % (15.0-51.0) Monocytes % 12.3 % (0.0-11.0) Eosinophils % 1.6 % (0.0-7.0) Basophils % 0.3 % (0.0-2.0) Nucleated Red Blood Cells % 0.0 /100WBC (0.0-0.0) Immature Granulocytes # 0.070 10^3/ul (0.0-0.031) Neutrophils # 9.2 10^3/ul (1.6-7.5) Lymphocytes # 2.3 10^3/ul (0.8-2.9) Monocytes # 1.7 10^3/ul (0.3-0.9) Eosinophils # 0.2 10^3/ul (0.0-0.5) Basophils # 0.0 10^3/ul (0.0-0.1) Nucleated Red Blood Cells # 0.0 10^3/ul (0.0-0.0) Erythrocyte Sedimentation Rate 30.0 mm/Hr (0-20) Sodium Level 142 mmol/L (135-144) Potassium Level 4.3 mmol/L (3.5-5.1) Chloride Level 110 mmol/L (97-110) Carbon Dioxide Level 27 mmol/L (21-31) Anion Gap 5 (5-13) Blood Urea Nitrogen 12 mg/dl (7-20) Creatinine 0.56 mg/dl (0.44-1.00) Est Glomerular Filtrat > 60 mL/min (>60) Rate mL/min Glucose Level 98 mg/dl (70-220) Calcium Level 8.8 mg/dl (8.4-10.2) Total Bilirubin 0.5 mg/dl (0.2-1.3) Direct Bilirubin 0.00 mg/dl (0.00-0.20) Indirect Bilirubin 0.5 mg/dl (0-1.1) Aspartate Amino 22 IU/L (15-46) Transf (AST/SGOT) Alanine 20 IU/L (13-69) Aminotransferase (ALT/SGPT) Alkaline Phosphatase 63 IU/L (42-121) C-Reactive Protein 5.6 mg/dl (0.0-0.9) Total Protein 6.3 g/dl (6.1-8.1) Albumin 3.1 g/dl (3.3-4.9) Globulin 3.20 g/dl (1.3-3.2) Albumin/Globulin Ratio 0.96 MÓNICA BROOKE NP Sep 22, 2018 14:21
== END 2018-09-22 15:06 | disposition home or self-care (01) | DRG 872 ==
LOC: FTE 21:55 → PP2 09-21 01:13
PROVIDERS: ADMIT Family Medicine; ATTEND Family Medicine
DX: A41.9 Sepsis, unspecified organism (principal); E66.9 Obesity, unspecified; N61.0 Mastitis without abscess; Z68.30 Body mass index [BMI] 30.0-30.9, adult
CPT/HCPCS: 36415; 76641; 80053; 80061; 81001; 81025; 83036; 83605; 83690; 83735; 84100; 84443; 85025; 85651; 86140; 96374; 96375; J0295; J1885; J2270; J2405; J2543; J3370; J7030; J7050